=== PATIENT | male | born 1950 | race Caucasian/White ===

== ENCOUNTER 2021-10-02 07:00 | Inpatient (IN) ==
[2021-10-02] MEDS ORDERED: CLORAZEPATE 3.75 MG TABLET PO PRN (07:38)
[2021-10-02] MEDS ORDERED: MORPHINE 2 MG/1 ML SYRINGE IV PRN (07:38)
[2021-10-02] MEDS ORDERED: DEXTROSE 50% 25 GM/50 ML VIAL IV PRN (07:38)
[2021-10-02] MEDS ORDERED: NITROGLYCERIN SL 0.4 MG TABLET SL PRN (07:38)
[2021-10-02] MEDS ORDERED: GLUCAGON 1 MG VIAL IM PRN (07:38)
[2021-10-02 14:24] LABS: Basophils % 0.3 % (0.0-0.8); Eosinophils # 0.1 10*3/uL (0.0-0.87); Eosinophils % 1.6 % (0.00-10.9); Hematocrit 40.2 VOL% (42.0-52.0); Hemoglobin 14.1 GM/DL (14.0-18.0); Immature Granulocytes % 0.3 %; Immature Granulocytes Absolute 0.02 #; Lymphocytes # 1.1 10*3/uL (1.4-4.0); Lymphocytes % 16.6 % (21.2-54.2); Mean Corpuscular HGB Conc 35.1 GM/DL (32-36); Mean Platelet Volume 8.8 FL (9.6-12.0); Neutrophils % 74.2 % (38.7-73.9); Platelet Count 189 T/CUMM (130-400); Red Blood Count 4.37 MC/CUMM (3.8-5.5); White Blood Count 6.9 T/CUMM (4-12)
[2021-10-02 14:41] LABS: Albumin 3.9 G/DL (3.4-5.0); Bilirubin,Total 0.4 MG/DL (0.20-1.00); Calcium 8.9 MG/DL (8.5-10.1); Osmolality,Calculated 279.7 MOS/KG (273-304); Total Protein 6.8 G/DL (6.4-8.2)
[2021-10-02 16:59] LABS: ABG Base Excess 0.3 MMOL/L (-2.5-2.5); ABG HCO3 24.6 MMOL/L (20-26); ABG Oxygen Saturation 97.5 % (95-100); ABG PCO2 37.4 MM HG (35-48); ABG PH 7.422 (7.35-7.45); ABG PO2 88.7 MM HG (80-95); ABG TCO2 20.8 MMOL/L (23-27)
[2021-10-02] MEDS: INSULIN REGULAR 100 UNIT/ML SUBCUT SCH ×3 (17:25→22:40)
[2021-10-02] MEDS: CHLORHEXIDINE 4% SOLN 118 ML BOTTLE TOP SCH ×2 (18:48→22:40)
[2021-10-02] MEDS: CHLORHEXIDINE 0.12% ORAL RINSE 60 ML BOTTLE SWISH/SPIT SCH ×2 (18:49→22:39)
[2021-10-03] MEDS ORDERED: VANCOMYCIN 1,000 MG VIAL ONE (04:26)
[2021-10-03] MEDS ORDERED: PAPAVERINE 60 MG/2 ML VIAL ONE (04:26)
[2021-10-03] MEDS ORDERED: VANCOMYCIN 500 MG VIAL ONE (04:26)
[2021-10-03] MEDS ORDERED: CEFUROXIME INJ 1,500 MG in SODIUM CHLORIDE 0.9% 100 ML IV ONE (05:00)
[2021-10-03] MEDS ORDERED: MIDAZOLAM 10 MG/2 ML VIAL ONE ×4 (05:58→09:35)
[2021-10-03] MEDS ORDERED: SUFentanil 250 MCG/5 ML AMP ONE ×2 (05:59)
[2021-10-03] MEDS ORDERED: DIAZEPAM 5 MG TABLET PO ONE (06:00)
[2021-10-03] MEDS ORDERED: FAMOTIDINE 20 MG TABLET PO ONE (06:00)
[2021-10-03 07:48] LABS: ABG Base Excess 0.1 MMOL/L (-2.5-2.5); ABG HCO3 24.6 MMOL/L (20-26); ABG PCO2 41.5 MM HG (35-48); ABG TCO2 21.8 MMOL/L (23-27); Glucose Heart Surgery 108 MG/DL (74-106); Hematocrit Heart Surgery 42.2 PERCENT (42-52); Hemoglobin Heart Surgery 13.8 G/DL (14.0-18.0); Ionized Calcium Arterial 1.17 MMOL/L (1.21-1.46); PCO2 Patient Temp Arterial 41.5 MMHG; Patient Temperature 37 CELCIUS; Potassium Heart/CVR 3.8 MMOL/L (3.5-5.1); Sodium Heart/CVR 140 MMOL/L (135-145)
[2021-10-03 08:08] LABS: Bacteria,Urine Occasional /HPF (Few); Bilirubin,Urine Negative (Negative); Blood, Urine Moderate mg/dL (Negative); Glucose,Urine (UA) Negative (Negative); Ketones,Urine Negative (Negative); Mucus,Urine Occasional /LPF (Occasional); Nitrite,Urine Negative (Negative); Protein,Urine Negative; RBC,Urine <1 /HPF (0-4); Urine Appearance CLEAR (Clear); Urine Color Yellow (Yellow); Urine Specific Gravity 1.015 (1.001-1.035); Urine Urobilinogen < 2.0 EU/DL (0.2-1.0)
[2021-10-03] MEDS: SODIUM CHLORIDE 0.9% 1,000 ML IV SCH ×2 (08:33→08:34)
[2021-10-03] MEDS: CHLORHEXIDINE 4% SOLN 118 ML BOTTLE TOP SCH (08:34)
[2021-10-03] MEDS: CHLORHEXIDINE 0.12% ORAL RINSE 60 ML BOTTLE SWISH/SPIT SCH (08:34)
[2021-10-03] MEDS: INSULIN REGULAR 100 UNIT/ML SUBCUT SCH (08:34)
[2021-10-03 09:10] LABS: Hematocrit Heart Surgery 31.9 PERCENT (42-52); Hemoglobin Heart Surgery 10.3 G/DL (14.0-18.0); PCO2 Patient Temp Venous 39.4 MM HG; PH Patient Temp Venous 7.403; PO2 Patient Temp Venous 39.6 MM HG; Potassium Heart/CVR 4.6 MMOL/L (3.5-5.1); VBG HCO3 24.2 MEQ/L (24-28); VBG Oxygen Saturation 82.4 %; VBG PCO2 45.6 MMHG (41-51); VBG PH 7.36; VBG PO2 48.7 MMHG (17-40); VBG Total CO2 23.5 MMOL/L
[2021-10-03] MEDS ORDERED: VECURONIUM 10 MG VIAL IV ONE (09:36)
[2021-10-03 09:42] LABS: Hemoglobin Heart Surgery 11.1 G/DL (14.0-18.0); PCO2 Patient Temp Venous 41.8 MM HG; PH Patient Temp Venous 7.401; PO2 Patient Temp Venous 37.4 MM HG; Potassium Heart/CVR 5.1 MMOL/L (3.5-5.1); VBG Base Excess 0.5 MEQ/L (0-4); VBG HCO3 25.4 MEQ/L (24-28); VBG PCO2 41.8 MMHG (41-51); VBG PH 7.401; VBG PO2 37.4 MMHG (17-40); VBG Total CO2 26.7 MMOL/L
[2021-10-03] MEDS ORDERED: POTASSIUM CHLORIDE RIDER 20 MEQ/100 ML PREMIX IV ONE (09:43)
[2021-10-03] MEDS ORDERED: CALCIUM CHLORIDE 1,000 MG/10 ML SYRINGE IV ONE (09:43)
[2021-10-03] MEDS ORDERED: NITROPRUSSIDE 50 MG/2 ML VIAL ONE (09:43)
[2021-10-03] MEDS ORDERED: SODIUM BICARBONATE 50 MEQ/50 ML VIAL IV ONE ×2 (09:43→10:11)
[2021-10-03] MEDS ORDERED: PHENYLEPHRINE DRIP 40 MG/250 ML PREMIX IV ONE (09:43)
[2021-10-03] MEDS ORDERED: ALBUMIN 5% 12.5 GM/250 ML VIAL IV ONE ×4 (09:44→19:26)
[2021-10-03 10:06] LABS: ABG Base Excess -1.6 MMOL/L (-2.5-2.5); ABG HCO3 23.1 MMOL/L (20-26); ABG Oxygen Saturation 99.7 % (95-100); ABG PH 7.375 (7.35-7.45); Glucose Heart Surgery 199 MG/DL (74-106); Ionized Calcium Arterial 1.24 MMOL/L (1.21-1.46); PH Patient Temp Arterial 7.375; Patient Temperature 37 CELCIUS; Potassium Heart/CVR 4.6 MMOL/L (3.5-5.1); Sodium Heart/CVR 133 MMOL/L (135-145)
[2021-10-03] MEDS ORDERED: methylPREDNISolone SOD SUC 1,000 MG/8 ML VIAL ONE (10:10)
[2021-10-03] MEDS ORDERED: HEPARIN 10,000 UNIT/10 ML VIAL ONE (10:10)
[2021-10-03] MEDS ORDERED: MAGNESIUM SULFATE 5 GM/10 ML VIAL IV ONE (10:10)
[2021-10-03] MEDS ORDERED: DEXTROSE 5% KCL 20 MEQ 20 MEQ/1,000 ML BAG IV ONE (10:10)
[2021-10-03] MEDS ORDERED: ALBUMIN 25% 25 GM/100 ML VIAL IV ONE (10:10)
[2021-10-03] MEDS ORDERED: PROTAMINE SULFATE 250 MG/25 ML VIAL IV ONE (10:10)
[2021-10-03] MEDS ORDERED: LIDOCAINE 2% 5 ML VIAL ONE ×2 (10:10→10:37)
[2021-10-03] MEDS ORDERED: MANNITOL 12.5 GM/50 ML VIAL IV ONE (10:11)
[2021-10-03] MEDS ORDERED: FUROSEMIDE 20 MG/2 ML VIAL ONE (10:11)
[2021-10-03] MEDS ORDERED: PROTAMINE SULFATE 50 MG/5 ML VIAL IV ONE (10:11)
[2021-10-03] MEDS ORDERED: HEPARIN/NACL 0.9% 2 UNITS/ML 1,000 UNIT/500 ML BAG IV ONE (10:37)
[2021-10-03] MEDS ORDERED: ETOMIDATE 40 MG/20 ML VIAL IV ONE (10:37)
[2021-10-03] MEDS ORDERED: PHENYLEPHRINE DRIP 20 MG/250 ML PREMIX IV ONE (10:37)
[2021-10-03] MEDS ORDERED: CALCIUM CHLORIDE 1,000 MG/10 ML VIAL IV ONE (10:37)
[2021-10-03] MEDS ORDERED: AMINOCAPROIC ACID 5,000 MG/20 ML VIAL ONE (10:37)
[2021-10-03] MEDS ORDERED: GLYCOPYRROLATE 0.4 MG/2 ML VIAL ONE (10:37)
[2021-10-03] MEDS ORDERED: SODIUM CHLORIDE 0.9% 1,000 ML IV ONE (10:37)
[2021-10-03] MEDS ORDERED: LACTATED RINGERS 1,000 ML IV ONE (10:37)
[2021-10-03] MEDS ORDERED: SODIUM CHLORIDE 0.9% 200 ML IV ONE (10:37)
[2021-10-03] MEDS ORDERED: SODIUM CHLORIDE 0.9% 250 ML IV ONE (10:37)
[2021-10-03] MEDS ORDERED: SEVOFLURANE 1 UNIT/15 MINUTE INH ONE (10:55)
[2021-10-03] MEDS ORDERED: POTASSIUM CHLORIDE RIDER 20 MEQ/100 ML PREMIX IV PRN (11:01)
[2021-10-03] MEDS ORDERED: MIDAZOLAM 2 MG/2 ML VIAL IV PRN (11:01)
[2021-10-03] MEDS ORDERED: POTASSIUM CHLORIDE RIDER 10 MEQ/100 ML PREMIX IV PRN (11:01)
[2021-10-03] MEDS ORDERED: KETOROLAC 30 MG/1 ML VIAL IV SCH (11:01)
[2021-10-03] MEDS ORDERED: LACTATED RINGERS 250 ML IV PRN (11:01)
[2021-10-03] MEDS ORDERED: INSULIN REGULAR 100 UNIT/ML IV ONE (11:01)
[2021-10-03] MEDS ORDERED: PHENYLEPHRINE DRIP 40 MG/250 ML PREMIX IV PRN (11:01)
[2021-10-03] MEDS ORDERED: MAGNESIUM SULF RIDER 2 GM/50 ML PREMIX IV PRN (11:01)
[2021-10-03] MEDS ORDERED: NITROPRUSSIDE 100 MG in DEXTROSE 5% 250 ML IV PRN (11:01)
[2021-10-03] MEDS ORDERED: VECURONIUM 10 MG VIAL IV PRN ×2 (11:01)
[2021-10-03] MEDS ORDERED: CALCIUM CHLORIDE 1,000 MG/10 ML SYRINGE IV PRN (11:01)
[2021-10-03] MEDS ORDERED: ACETAMINOPHEN 650 MG SUPP RECTAL PRN (11:01)
[2021-10-03] MEDS ORDERED: DEXTROSE 50% 25 GM/50 ML VIAL IV PRN ×2 (11:01)
[2021-10-03] MEDS ORDERED: MAGNESIUM SULF RIDER 4 GM/100 ML PREMIX IV PRN (11:01)
[2021-10-03] MEDS ORDERED: MIDAZOLAM 10 MG/2 ML VIAL IV PRN (11:01)
[2021-10-03 11:12] LABS: ABG Base Excess -0.3 MMOL/L (-2.5-2.5); ABG HCO3 24.2 MMOL/L (20-26); ABG Oxygen Saturation 99.2 % (95-100); ABG PCO2 37.9 MM HG (35-48); ABG TCO2 21.1 MMOL/L (23-27); Glucose Heart Surgery 167 MG/DL (74-106); Hematocrit Heart Surgery 38.4 PERCENT (42-52); Hemoglobin Heart Surgery 12.5 G/DL (14.0-18.0); Potassium Heart/CVR 4.5 MMOL/L (3.5-5.1)
[2021-10-03 11:15] LABS: Basophils % 0.3 % (0.0-0.8); Eosinophils # 0.1 10*3/uL (0.0-0.87); Eosinophils % 0.7 % (0.00-10.9); Hematocrit 33.8 VOL% (42.0-52.0); Hemoglobin 12.2 GM/DL (14.0-18.0); Immature Granulocytes % 0.7 %; Immature Granulocytes Absolute 0.05 #; Lymphocytes # 0.6 10*3/uL (1.4-4.0); Lymphocytes % 8.3 % (21.2-54.2); Mean Corpuscular HGB Conc 36.1 GM/DL (32-36); Mean Corpuscular Volume 90.4 FL (87-102); Mean Platelet Volume 8.6 FL (9.6-12.0); Monocytes % 5.3 % (1.7-12.7); Neutrophils % 84.7 % (38.7-73.9); Platelet Count 170 T/CUMM (130-400); Red Blood Count 3.74 MC/CUMM (3.8-5.5); White Blood Count 7.2 T/CUMM (4-12)
[2021-10-03] MEDS: INSULIN REGULAR DRIP 100 ML IV SCH ×2 (11:18→16:12)
[2021-10-03 11:24] LABS: INR 1.1; PT Patient Result 12.6 SECS (10.5-12.0); Partial Thromboplastin Time 27.6 SECS (23.8-32.1)
[2021-10-03] MEDS: SODIUM CHLORIDE 0.45% 1,000 ML IV SCH ×2 (11:28)
[2021-10-03 11:35] LABS: CKMB % 3.3 %
[2021-10-03 11:37] LABS: High Sensitive Troponin I* 1449.2 ng/L (0-78)
[2021-10-03 11:40] LABS: Albumin 3.3 G/DL (3.4-5.0); Bilirubin,Total 1.1 MG/DL (0.20-1.00); Calcium 8.7 MG/DL (8.5-10.1); Osmolality,Calculated 282.7 MOS/KG (273-304); Potassium 4.6 MMOL/L (3.5-5.1); Total Protein 5.4 G/DL (6.4-8.2)
[2021-10-03] MEDS: LACTATED RINGERS 1,000 ML IV PRN ×2 (12:00→18:35)
[2021-10-03] MEDS: ALBUMIN 5% 12.5 GM/250 ML VIAL IV PRN ×3 (12:00→19:02)
[2021-10-03 12:48] LABS: ABG Base Excess -0.6 MMOL/L (-2.5-2.5); ABG Oxygen Saturation 99.8 % (95-100); ABG PCO2 32.9 MM HG (35-48); ABG PH 7.446 (7.35-7.45); ABG TCO2 19.7 MMOL/L (23-27); Glucose Heart Surgery 154 MG/DL (74-106); Hematocrit Heart Surgery 40.4 PERCENT (42-52); Hemoglobin Heart Surgery 13.1 G/DL (14.0-18.0); Potassium Heart/CVR 4.2 MMOL/L (3.5-5.1)
[2021-10-03 15:52] LABS: ABG Base Excess -1.8 MMOL/L (-2.5-2.5); ABG Oxygen Saturation 98.2 % (95-100); ABG PCO2 34.6 MM HG (35-48); ABG PH 7.421 (7.35-7.45); ABG PO2 135.5 MM HG (80-95); ABG TCO2 23.1 MMOL/L (23-27); Glucose Heart Surgery 164 MG/DL (74-106); Potassium Heart/CVR 4.3 MMOL/L (3.5-5.1)
[2021-10-03 18:11] LABS: ABG HCO3 20.4 MMOL/L (20-26); ABG Oxygen Saturation 99.3 % (95-100); ABG PCO2 39.3 MM HG (35-48); ABG PH 7.328 (7.35-7.45); ABG TCO2 18.5 MMOL/L (23-27); Glucose Heart Surgery 170 MG/DL (74-106); Hematocrit Heart Surgery 36.7 PERCENT (42-52); Hemoglobin Heart Surgery 11.9 G/DL (14.0-18.0)
[2021-10-03] MEDS: CEFUROXIME INJ 1,500 MG in SODIUM CHLORIDE 0.9% 100 ML IV SCH (18:39)
[2021-10-03] MEDS ORDERED: FUROSEMIDE 40 MG/4 ML VIAL IV ONE (19:26)
[2021-10-03] MEDS: ONDANSETRON 4 MG/2 ML VIAL IV PRN (20:02)
[2021-10-03 21:35] LABS: ABG HCO3 20.3 MMOL/L (20-26); ABG Oxygen Saturation 98.7 % (95-100); ABG PCO2 37.8 MM HG (35-48); ABG PH 7.339 (7.35-7.45); ABG TCO2 18.3 MMOL/L (23-27); Glucose Heart Surgery 142 MG/DL (74-106); Hematocrit Heart Surgery 34.9 PERCENT (42-52); Hemoglobin Heart Surgery 11.3 G/DL (14.0-18.0); Potassium Heart/CVR 4.2 MMOL/L (3.5-5.1)
[2021-10-03 22:10] LABS: CKMB % 2.5 %
[2021-10-03 22:12] LABS: High Sensitive Troponin I* 2263.4 ng/L (0-78)
[2021-10-03] MEDS: INSULIN REGULAR 100 UNIT/ML IV PRN (23:30)
[2021-10-04] MEDS: INSULIN REGULAR 100 UNIT/ML IV PRN ×3 (00:12→06:55)
[2021-10-04 00:14] LABS: ABG HCO3 18.7 MMOL/L (20-26); ABG Oxygen Saturation 98.1 % (95-100); ABG PCO2 30.5 MM HG (35-48); ABG PH 7.405 (7.35-7.45); ABG PO2 138.8 MM HG (80-95); ABG TCO2 19.6 MMOL/L (23-27); Glucose Heart Surgery 192 MG/DL (74-106); Potassium Heart/CVR 4.1 MMOL/L (3.5-5.1)
[2021-10-04] MEDS: LACTATED RINGERS 1,000 ML IV PRN (00:14)
[2021-10-04] MEDS: ALBUMIN 5% 12.5 GM/250 ML VIAL IV PRN (00:27)
[2021-10-04] MEDS: ONDANSETRON 4 MG/2 ML VIAL IV PRN ×3 (00:54→11:24)
[2021-10-04 01:34] LABS: ABG Base Excess -4.7 MMOL/L (-2.5-2.5); ABG HCO3 20.5 MMOL/L (20-26); ABG Oxygen Saturation 99.5 % (95-100); ABG PCO2 39.8 MM HG (35-48); ABG PH 7.328 (7.35-7.45); ABG TCO2 18.9 MMOL/L (23-27); Glucose Heart Surgery 169 MG/DL (74-106); Hematocrit Heart Surgery 33.8 PERCENT (42-52); Hemoglobin Heart Surgery 10.9 G/DL (14.0-18.0); Potassium Heart/CVR 3.9 MMOL/L (3.5-5.1)
[2021-10-04] MEDS: CHLORHEXIDINE 0.12% ORAL RINSE 60 ML BOTTLE SWISH/SPIT SCH ×3 (02:22→21:47)
[2021-10-04 03:38] LABS: ABG Base Excess -2.4 MMOL/L (-2.5-2.5); ABG HCO3 22.4 MMOL/L (20-26); ABG Oxygen Saturation 97.4 % (95-100); ABG PCO2 42.4 MM HG (35-48); ABG PH 7.346 (7.35-7.45); ABG PO2 92.5 MM HG (80-95); Glucose Heart Surgery 137 MG/DL (74-106); Hematocrit Heart Surgery 33.5 PERCENT (42-52); Hemoglobin Heart Surgery 10.9 G/DL (14.0-18.0); Potassium Heart/CVR 4.2 MMOL/L (3.5-5.1)
[2021-10-04 03:43] LABS: Basophils % 0.1 % (0.0-0.8); Hematocrit 29.8 VOL% (42.0-52.0); Hemoglobin 10.6 GM/DL (14.0-18.0); Immature Granulocytes % 0.5 %; Immature Granulocytes Absolute 0.06 #; Lymphocytes # 0.3 10*3/uL (1.4-4.0); Lymphocytes % 2.2 % (21.2-54.2); Mean Corpuscular HGB Conc 35.6 GM/DL (32-36); Mean Corpuscular Volume 90.9 FL (87-102); Mean Platelet Volume 8.8 FL (9.6-12.0); Monocytes % 3.5 % (1.7-12.7); Neutrophils % 93.7 % (38.7-73.9); Platelet Count 110 T/CUMM (130-400); Red Blood Count 3.28 MC/CUMM (3.8-5.5); Red Cell Distribution Width 13.1 % (9.3-17.3); White Blood Count 13.2 T/CUMM (4-12)
[2021-10-04 03:59] LABS: Albumin 3.8 G/DL (3.4-5.0); Bilirubin,Direct 0.22 MG/DL (0.0-0.20); Bilirubin,Total 0.6 MG/DL (0.20-1.00); CKMB % 2.1 %; Calcium 8.7 MG/DL (8.5-10.1); Osmolality,Calculated 287.3 MOS/KG (273-304); Potassium 4.2 MMOL/L (3.5-5.1)
[2021-10-04 04:00] LABS: High Sensitive Troponin I* 2172.2 ng/L (0-78)
[2021-10-04] MEDS: MORPHINE 10 MG/1 ML VIAL IV PRN ×2 (05:19→07:29)
[2021-10-04] MEDS: CEFUROXIME INJ 1,500 MG in SODIUM CHLORIDE 0.9% 100 ML IV SCH (06:03)
[2021-10-04] MEDS ORDERED: MORPHINE 2 MG/1 ML SYRINGE ONE (07:28)
[2021-10-04] MEDS ORDERED: PHENOL 1.4% THROAT SPRAY 177 ML BOTTLE PO PRN (09:45)
[2021-10-04] MEDS ORDERED: oxyCODONE/ACETAMINOPHEN 5-325 MG TABLET PO PRN ×2 (09:45)
[2021-10-04] MEDS ORDERED: INSULIN REGULAR 100 UNIT/ML SUBCUT PRN (12:00)
[2021-10-04] MEDS: SODIUM CHLORIDE 0.45% 1,000 ML IV SCH ×2 (12:19)
[2021-10-04 12:48] LABS: CKMB % 1.6 %; High Sensitive Troponin I* 1562.4 ng/L (0-78)
[2021-10-04] MEDS ORDERED: ACETAMINOPHEN 325 MG TABLET PO PRN (13:25)
[2021-10-04] MEDS ORDERED: MAGNESIUM SULF RIDER 4 GM/100 ML PREMIX IV PRN (13:25)
[2021-10-04] MEDS ORDERED: ONDANSETRON 4 MG/2 ML VIAL IV PRN (13:25)
[2021-10-04] MEDS ORDERED: MAGNESIUM HYDROXIDE SUSP 30 ML UDCUP PO PRN (13:25)
[2021-10-04] MEDS ORDERED: GLUCAGON 1 MG VIAL IM PRN ×2 (13:25)
[2021-10-04] MEDS ORDERED: DEXTROSE 50% 25 GM/50 ML VIAL IV PRN ×2 (13:25)
[2021-10-04] MEDS ORDERED: SODIUM CHLOR 0.45% KCL 20 MEQ 20 MEQ/1,000 ML BAG IV SCH (13:25)
[2021-10-04] MEDS ORDERED: MAGNESIUM SULF RIDER 2 GM/50 ML PREMIX IV PRN (13:25)
[2021-10-04] MEDS ORDERED: ALUMINUM/MAGNES/SIMETH MAX STR 30 ML UDCUP PO PRN (13:25)
[2021-10-04] MEDS ORDERED: POTASSIUM CHLORIDE 20 MEQ TABLET PO PRN (13:25)
[2021-10-04] MEDS ORDERED: ZALEPLON 5 MG CAPSULE PO PRN (13:25)
[2021-10-04] MEDS ORDERED: CEFUROXIME INJ 1,500 MG in SODIUM CHLORIDE 0.9% 100 ML IV ONE ×2 (13:29→19:00)
[2021-10-04] MEDS ORDERED: INSULIN REGULAR 100 UNIT/ML SUBCUT SCH (16:00)
[2021-10-04] MEDS: oxyCODONE/ACETAMINOPHEN 5-325 MG TABLET PO PRN (18:58)
[2021-10-04] MEDS: INSULIN REGULAR 100 UNIT/ML SUBCUT SCH ×2 (21:06→23:56)
[2021-10-04] MEDS: TAMSULOSIN 0.4 MG CAPSULE PO SCH (21:46)
[2021-10-04] MEDS: metFORMIN 500 MG TABLET PO SCH (21:46)
[2021-10-05] MEDS: INSULIN REGULAR 100 UNIT/ML SUBCUT SCH ×5 (03:35→20:27)
[2021-10-05 05:35] LABS: Basophils % 0.1 % (0.0-0.8); Hematocrit 33.3 VOL% (42.0-52.0); Hemoglobin 11.7 GM/DL (14.0-18.0); Immature Granulocytes % 0.5 %; Immature Granulocytes Absolute 0.09 #; Lymphocytes # 0.5 10*3/uL (1.4-4.0); Lymphocytes % 2.7 % (21.2-54.2); Mean Corpuscular HGB Conc 35.1 GM/DL (32-36); Mean Corpuscular Volume 95.4 FL (87-102); Mean Platelet Volume 9.3 FL (9.6-12.0); Monocytes % 5.2 % (1.7-12.7); Neutrophils % 91.5 % (38.7-73.9); Platelet Count 114 T/CUMM (130-400); Red Blood Count 3.49 MC/CUMM (3.8-5.5); Red Cell Distribution Width 13.4 % (9.3-17.3); White Blood Count 17.6 T/CUMM (4-12)
[2021-10-05 06:00] LABS: Alanine Aminotransferase 21 U/L (16-61); Albumin 3.5 G/DL (3.4-5.0); Alkaline Phosphatase 34 U/L (45-117); Aspartate Amino Transferase 24 U/L (0-37); Bilirubin,Indirect 0.8 MG/DL (0.0-1.0); Blood Urea Nitrogen 40 MG/DL (7-18); Calcium 8.7 MG/DL (8.5-10.1); Carbon Dioxide 25 MMOL/L (21-32); Estimated Glom Filtration Rate 48 ML/MIN; Glucose 139 MG/DL (74-106); Osmolality,Calculated 286.7 MOS/KG (273-304); Potassium 4.9 MMOL/L (3.5-5.1); Sodium 138 MMOL/L (136-145); Total Protein 6.1 G/DL (6.4-8.2)
[2021-10-05] MEDS ORDERED: FUROSEMIDE 40 MG/4 ML VIAL IV ONE (06:00)
[2021-10-05 06:13] LABS: Anisocytosis 1+; Band Neutrophils 5 % (0-10); Lymphocytes 3 % (20-55); Platelet Estimate Adequate; Segmented Neutrophils 86 % (50-85); Total Cells Counted 100
[2021-10-05] MEDS: PANTOPRAZOLE 40 MG TABLET PO SCH (10:08)
[2021-10-05] MEDS: hydroCHLOROthiazide 12.5 MG CAPSULE PO SCH (10:08)
[2021-10-05] MEDS: ASPIRIN EC 325 MG TABLET PO SCH (10:09)
[2021-10-05] MEDS: TAMSULOSIN 0.4 MG CAPSULE PO SCH ×2 (10:09→20:21)
[2021-10-05] MEDS: DOCUSATE SODIUM 100 MG CAPSULE PO SCH (10:09)
[2021-10-05] MEDS: FERROUS SULFATE 325 MG TABLET PO SCH (10:09)
[2021-10-05] MEDS: CHLORHEXIDINE 0.12% ORAL RINSE 60 ML BOTTLE SWISH/SPIT SCH ×2 (10:09→20:24)
[2021-10-05] MEDS: ATORVASTATIN 40 MG TABLET PO SCH (10:09)
[2021-10-05] MEDS: metFORMIN 500 MG TABLET PO SCH ×2 (10:10→20:22)
[2021-10-05] MEDS: oxyCODONE/ACETAMINOPHEN 5-325 MG TABLET PO PRN (21:59)
[2021-10-06] MEDS: INSULIN REGULAR 100 UNIT/ML SUBCUT SCH ×5 (01:37→21:47)
[2021-10-06 07:49] LABS: Basophils % 0.1 % (0.0-0.8); Eosinophils % 0.1 % (0.00-10.9); Hematocrit 34.4 VOL% (42.0-52.0); Immature Granulocytes % 0.5 %; Immature Granulocytes Absolute 0.06 #; Lymphocytes % 7.8 % (21.2-54.2); Mean Corpuscular HGB Conc 34.9 GM/DL (32-36); Mean Corpuscular Volume 92.7 FL (87-102); Mean Platelet Volume 9.1 FL (9.6-12.0); Neutrophils % 83.5 % (38.7-73.9); Platelet Count 126 T/CUMM (130-400); Red Blood Count 3.71 MC/CUMM (3.8-5.5); Red Cell Distribution Width 13.5 % (9.3-17.3); White Blood Count 12.2 T/CUMM (4-12)
[2021-10-06 08:03] LABS: Alanine Aminotransferase 23 U/L (16-61); Albumin 3.3 G/DL (3.4-5.0); Alkaline Phosphatase 39 U/L (45-117); Aspartate Amino Transferase 23 U/L (0-37); Bilirubin,Indirect 0.5 MG/DL (0.0-1.0); Blood Urea Nitrogen 39 MG/DL (7-18); Calcium 8.7 MG/DL (8.5-10.1); Carbon Dioxide 28 MMOL/L (21-32); Estimated Glom Filtration Rate 56 ML/MIN; Glucose 108 MG/DL (74-106); Osmolality,Calculated 286.5 MOS/KG (273-304); Potassium 3.8 MMOL/L (3.5-5.1); Sodium 139 MMOL/L (136-145); Total Protein 6.1 G/DL (6.4-8.2)
[2021-10-06] MEDS: ASPIRIN EC 325 MG TABLET PO SCH (09:56)
[2021-10-06] MEDS: DOCUSATE SODIUM 100 MG CAPSULE PO SCH (09:56)
[2021-10-06] MEDS: metFORMIN 500 MG TABLET PO SCH ×2 (09:56→20:22)
[2021-10-06] MEDS: PANTOPRAZOLE 40 MG TABLET PO SCH (09:56)
[2021-10-06] MEDS: TAMSULOSIN 0.4 MG CAPSULE PO SCH ×2 (09:56→20:22)
[2021-10-06] MEDS: hydroCHLOROthiazide 12.5 MG CAPSULE PO SCH (09:56)
[2021-10-06] MEDS: LACTULOSE 20 GM/30 ML UDCUP PO PRN (09:56)
[2021-10-06] MEDS: ATORVASTATIN 40 MG TABLET PO SCH (09:56)
[2021-10-06] MEDS: FERROUS SULFATE 325 MG TABLET PO SCH (09:57)
[2021-10-06] MEDS: CHLORHEXIDINE 0.12% ORAL RINSE 60 ML BOTTLE SWISH/SPIT SCH ×2 (09:57→20:22)
[2021-10-06] MEDS: oxyCODONE/ACETAMINOPHEN 5-325 MG TABLET PO PRN (20:22)
[2021-10-07] MEDS: oxyCODONE/ACETAMINOPHEN 5-325 MG TABLET PO PRN ×3 (05:08→20:57)
[2021-10-07] MEDS: INSULIN REGULAR 100 UNIT/ML SUBCUT SCH ×4 (08:56→21:00)
[2021-10-07] MEDS: ASPIRIN EC 325 MG TABLET PO SCH (10:36)
[2021-10-07] MEDS: ATORVASTATIN 40 MG TABLET PO SCH (10:36)
[2021-10-07] MEDS: DOCUSATE SODIUM 100 MG CAPSULE PO SCH (10:36)
[2021-10-07] MEDS: TAMSULOSIN 0.4 MG CAPSULE PO SCH ×2 (10:36→20:56)
[2021-10-07] MEDS: FERROUS SULFATE 325 MG TABLET PO SCH (10:36)
[2021-10-07] MEDS: metFORMIN 500 MG TABLET PO SCH ×2 (10:36→20:57)
[2021-10-07] MEDS: hydroCHLOROthiazide 12.5 MG CAPSULE PO SCH (10:36)
[2021-10-07] MEDS: PANTOPRAZOLE 40 MG TABLET PO SCH (10:36)
[2021-10-07] MEDS: CHLORHEXIDINE 0.12% ORAL RINSE 60 ML BOTTLE SWISH/SPIT SCH ×2 (10:37→20:57)
[2021-10-07] MEDS: LACTULOSE 20 GM/30 ML UDCUP PO PRN (21:00)
[2021-10-08] MEDS: DOCUSATE SODIUM 100 MG CAPSULE PO SCH (10:26)
[2021-10-08] MEDS: PANTOPRAZOLE 40 MG TABLET PO SCH (10:26)
[2021-10-08] MEDS: ATORVASTATIN 40 MG TABLET PO SCH (10:26)
[2021-10-08] MEDS: FERROUS SULFATE 325 MG TABLET PO SCH (10:27)
[2021-10-08] MEDS: hydroCHLOROthiazide 12.5 MG CAPSULE PO SCH (10:27)
[2021-10-08] MEDS: metFORMIN 500 MG TABLET PO SCH (10:27)
[2021-10-08] MEDS: TAMSULOSIN 0.4 MG CAPSULE PO SCH (10:27)
[2021-10-08] MEDS: ASPIRIN EC 325 MG TABLET PO SCH (10:27)
[2021-10-08] MEDS: CHLORHEXIDINE 0.12% ORAL RINSE 60 ML BOTTLE SWISH/SPIT SCH (10:28)
[2021-10-08] MEDS: oxyCODONE/ACETAMINOPHEN 5-325 MG TABLET PO PRN (10:32)
[2021-10-08] MEDS: INSULIN REGULAR 100 UNIT/ML SUBCUT SCH ×2 (11:25→13:20)
[2021-10-08 12:03] VITALS: BP 120/67
== END 2021-10-08 13:00 | disposition home health service (06) | DRG 236 ==
LOC: N.2W 13:29 → N.CVR 10-03 10:21 → N.ICU 10-04 05:00 → N.TELES 10-04 17:30